=== PATIENT | male | born 1980 | race Caucasian/White ===

== ENCOUNTER 2018-09-11 07:41 | Day surgery (SDC) | payer MEDICAID ==
[2018-09-11] MEDS ORDERED: Lactated Ringer's 1,000 ML IV ONE (09:45)
--- NOTE | 2018-09-11 09:46 | CP.SDSHP ---
Same Day Surgery H & P - History Proposed Procedure: COLONSCOPY Pre-Op Diagnosis: SEE NOTES - Previous Medical/Surgical History Misc: Other Pain: 4.Moderate Pain - Allergies Allergies: Allergies No Known Allergies Allergy (Verified 09/11/18 08:00) - Physical Exam General Appearance: N Vital Signs: Vital Signs 09/11/18 08:01 Temperature 98.9 F Pulse Rate 80 Respiratory 18 Rate Blood Pressure 151/99 H O2 Sat by Pulse 98 Oximetry Mental Status: Alert & Oriented x3 Neuro: WNL Heart: WNL Lungs: WNL GI: Other - {Optional Preform as Required} Breast: WNL Abdomen: Other Rectal: Other Integument: WNL : WNL Ortho: WNL ENT: WNL - Impression Pt. Evaluated Today:Candidate for Anesthesia & Procedure: Yes - Date & Time Time: 09:45 Short Stay Discharge - Short Stay Discharge Admitting Diagnosis/Reason for Visit: HEMORRHAGE OF ANUS AND RECTUM Disposition: HOME/ ROUTINE
[2018-09-11] MEDS ORDERED: Lidocaine Hydrochloride 5 ML INJ ONE (09:49)
[2018-09-11] MEDS ORDERED: Propofol 10 mg/ml Inj (20 ML) ONE (09:49)
[2018-09-11] MEDS ORDERED: Belladonna-Phenobarbital PO ONE (10:35)
[2018-09-11 11:21] VITALS: TEMP 97
[2018-09-11 11:23] VITALS: RESP 20; O2SAT 100
[2018-09-11 11:35] VITALS: BP 140/92; PULSE 95
== END 2018-09-11 11:30 | disposition home or self-care (01) ==
LOC: C.ENDO 07:41
PROVIDERS: ATTEND Specialist
DX: K60.2 Anal fissure, unspecified (principal); K52.9 Noninfective gastroenteritis and colitis, unspecified; K64.8 Other hemorrhoids; K64.4 Residual hemorrhoidal skin tags; K62.5 Hemorrhage of anus and rectum
CPT/HCPCS: 45380; 88305; J2704; J3010; J7120